=== PATIENT | female | born 1975 | race American Indian/Alaskan Native ===

== ENCOUNTER 2016-06-13 09:20 | Outpatient (CLI) | payer OTHER ==
--- NOTE | 2016-06-13 10:02 | Mammography Report ---
Bilateral mammogram: No previous studies are available. CT study utilized. Findings: Predominance adipose tissue bilaterally. No mass or microcalcification. Focal faint 3 mm low density asymmetry in the posterior left breast are seen on CC view. Normal axilla. Impression: Focal asymmetry left breast. Comparison with previous study is recommended. If previous studies are not available spot mag and sonographic examination advised. BI-RADS CATEGORY: 0 = Needs additional imaging evaluation ACR BI-RADS MAMMOGRAPHIC CODES: 0 = Needs additional imaging evaluation; 1 = Negative; 2 = Benign; 3 = Probably benign; 4 = Suspicious; 5 = Malignant; 6 = Known biopsy-proven malignancy COMMENT: 1. Dense breast tissue, i.e., adenosis, fibrocystic changes, etc., may obscure an underlying neoplasm. 2. Approximately 10% of cancers are not detected with mammography. 3. A negative mammography report should not delay biopsy if a clinically suspicious mass is present. COMMENT: Patient follow-up letters are generated in [employer]
== END 2016-06-13 09:21 | disposition home or self-care (01) ==
LOC: MAMMO 09:20
PROVIDERS: ATTEND Obstetrics & Gynecology
DX: Z12.31 Encounter for screening mammogram for malignant neoplasm of breast (principal)
CPT/HCPCS: 77067; G0202

== ENCOUNTER 2016-06-28 09:29 | Outpatient (CLI) | payer OTHER ==
--- NOTE | 2016-06-28 10:14 | Mammography Report ---
Left mammogram: Additional views of left breast information screening dictation from June 13. A spot CC compression and rolled CC view demonstrates that the area of asymmetry which is primarily only seen on the CC view is no longer identified on the rolled examination. It is however still present in these spot compression. The straight lateral compression view also fails to identify any significant asymmetry. Impression: Probably benign finding. Recommendation: Repeat left mammogram in 6 months to confirm stability. BI-RADS CATEGORY: 3 = Probably benign ACR BI-RADS MAMMOGRAPHIC CODES: 0 = Needs additional imaging evaluation; 1 = Negative; 2 = Benign; 3 = Probably benign; 4 = Suspicious; 5 = Malignant; 6 = Known biopsy-proven malignancy COMMENT: 1. Dense breast tissue, i.e., adenosis, fibrocystic changes, etc., may obscure an underlying neoplasm. 2. Approximately 10% of cancers are not detected with mammography. 3. A negative mammography report should not delay biopsy if a clinically suspicious mass is present.
== END 2016-06-28 09:30 | disposition home or self-care (01) ==
LOC: MAMMO 09:29
DX: R92.8 Other abnormal and inconclusive findings on diagnostic imaging of breast (principal)
CPT/HCPCS: 77066; G0204

== ENCOUNTER 2017-02-13 09:58 | Outpatient (CLI) | payer OTHER ==
--- NOTE | 2017-02-13 10:34 | Mammography Report ---
Six-month followup left mammogram: Compared to 06/13/16 and 06/28/16. CAD study utilized. Findings: Focal asymmetry identified in left breast in previous study is no longer seen in present study. No microcalcification. Benign axillary nodes. Impression: Benign findings. Annual followup recommended. BI-RADS CATEGORY: 2 = Benign ACR BI-RADS MAMMOGRAPHIC CODES: 0 = Needs additional imaging evaluation; 1 = Negative; 2 = Benign; 3 = Probably benign; 4 = Suspicious; 5 = Malignant; 6 = Known biopsy-proven malignancy COMMENT: 1. Dense breast tissue, i.e., adenosis, fibrocystic changes, etc., may obscure an underlying neoplasm. 2. Approximately 10% of cancers are not detected with mammography. 3. A negative mammography report should not delay biopsy if a clinically suspicious mass is present. BI-RADS CATEGORY: 0 = Needs additional imaging evaluation ACR BI-RADS MAMMOGRAPHIC CODES: 0 = Needs additional imaging evaluation; 1 = Negative; 2 = Benign; 3 = Probably benign; 4 = Suspicious; 5 = Malignant; 6 = Known biopsy-proven malignancy COMMENT: 1. Dense breast tissue, i.e., adenosis, fibrocystic changes, etc., may obscure an underlying neoplasm. 2. Approximately 10% of cancers are not detected with mammography. 3. A negative mammography report should not delay biopsy if a clinically suspicious mass is present.
== END 2017-02-13 09:59 | disposition home or self-care (01) ==
LOC: MAMMO 09:58
PROVIDERS: ATTEND Advanced Practice Midwife
DX: N64.4 Mastodynia (principal); I10 Essential (primary) hypertension; J45.909 Unspecified asthma, uncomplicated; D64.9 Anemia, unspecified; Z87.891 Personal history of nicotine dependence
CPT/HCPCS: G0206-LT

== ENCOUNTER 2019-02-02 13:38 | Emergency (ER) | payer OTHER, MEDICAID ==
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
[2019-02-02] MEDS ORDERED: FLUORESCEIN 1 MG STRIP OP ONE (16:29)
[2019-02-02] MEDS ORDERED: ACETAMINOPHEN 500 MG TAB PO ONE (16:30)
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
[2019-02-02] MEDS ORDERED: ONDANSETRON 4 MG ODT TAB PO ONE (18:49)
[2019-02-02] MEDS ORDERED: HYDROcodone/ACETAMINOPHEN 7.5-325MG TAB PO ONE (18:49)
[2019-02-02] MEDS ORDERED: IBUPROFEN 600 MG TAB PO ONE (18:49)
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
[2019-02-02 20:42] VITALS: BP 119/59
== END 2019-02-02 20:42 | disposition home or self-care (01) ==
LOC: ED 13:38
DX: S29.011A Strain of muscle and tendon of front wall of thorax, initial encounter (principal); M62.830 Muscle spasm of back; M62.838 Other muscle spasm; I10 Essential (primary) hypertension; J45.909 Unspecified asthma, uncomplicated; Z87.891 Personal history of nicotine dependence; Z79.899 Other long term (current) drug therapy; Z88.8 Allergy status to other drugs, medicaments and biological substances; V49.49XA Driver injured in collision with other motor vehicles in traffic accident, initial encounter; Y93.89 Activity, other specified; Y92.410 Unspecified street and highway as the place of occurrence of the external cause; Y99.8 Other external cause status
CPT/HCPCS: 72040; 72100; Q0162